=== PATIENT | female | born 1960 | race Caucasian/White ===

== ENCOUNTER 2021-08-08 19:03 | Emergency (ER) | payer BC, OTHER, SELFPAY ==
[2021-08-08 19:04] VITALS: BP 141/75; PULSE 87; RESP 17; TEMP 37.1; O2SAT 99; BMI 36.0
[2021-08-08 19:19] VITALS: BP 141/75; PULSE 90; RESP 16; TEMP 36.9; O2SAT 97; BMI 36.0
--- NOTE | 2021-08-08 19:34 | PC.NURSE ---
PATIENT SENT ER PER Kavin WILLIS APRN D/T LACERATION TO FINGER INVOLVING NAILBED
--- NOTE | 2021-08-08 19:34 | HMH.EDUTC ---
[facility] [place] <Wilman Kuhn - Last Filed: 08/08/21 20:38> Condition on Discharge: Good <Jailyn Patel - Last Filed: 08/08/21 20:52> Clinical Impression: Laceration Disposition: Home, Self-Care Instructions: DI for Laceration Repair Additional Instructions: sutures out 10 days and recheck if any problems Prescriptions: cephALEXin [cephALEXin 500mg capsule*] 500 mg PO TID #30 cap Transmission Status: Received by [facility]/pharmacy #[id number] Referrals: Wilman Ceja [Primary Care Provider] - Medical Decision Making - Kiran Inquiry Pt receiving controlled substance: No Kiran was queried for this patient: No <Jailyn Patel - Last Filed: 08/08/21 20:52> Vital Signs: 08/08/21 19:04 08/08/21 19:19 Temperature 98.7 F 98.4 F Temperature Source Oral Oral Pulse Rate [Right] 87 90 Respiratory Rate 17 16 Blood Pressure [Right Arm] 141/75 H 141/75 H Blood Pressure Mean [Right Arm] 97 97 Blood Pressure Source [Right Arm] Automatic Cuff 02 Sat by Pulse Oximetry 99 97 Oxygen Delivery Method Room Air Room Air Orders (Tests/Meds): ED MEDICATIONS Discontinued Medications Generic Name Dose Route Start Last Admin Trade Name Freq PRN Reason Stop Dose Admin Cephalexin HCl 500 mg 08/08/21 20:41 08/08/21 20:45 Cephalexin 500mg Capsule PO 08/08/21 20:42 500 mg ONCE ONE Administration Medical Decision Narrative: due to complex laceration to tip of left index finger through finger nail that appears to be involving nailbed called ED spoke with Sami and patient was transferred back to the ED for further treatment (Jailyn Patel) [facility] [place] - General Source of Information: Patient, Medical Record Limitations: No Limitations <Wilman Kuhn - Last Filed: 08/08/21 20:38> - General Mode of Arrival: Ambulatory Description of Symptoms (Recalled from Triage Doc. by RN): pt states was using sewing machine and finger slipped. 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 Time Seen by Provider: 08/08/21 19:34 - Related Data Home Medications Medication Instructions Recorded Confirmed Lisinopril/Hydrochlorothiazide 1 each PO DAILY 08/08/21 08/08/21 [Zestoretic 10/12.5mg tablet] Meloxicam [Mobic 15 mg tab] 15 mg PO DAILY 08/08/21 08/08/21 metHOTREXate sodium [metHOTREXate 2.5 mg PO DAILY 08/08/21 08/08/21 2.5mg Tablet] Previous Rx's Medication Instructions Recorded cephALEXin [cephALEXin 500mg 500 mg PO TID #30 cap 08/08/21 capsule*] Allergies Allergy/AdvReac Type Severity Reaction Status Date / Time No Known Allergies Allergy Verified 08/08/21 19:36 [facility] History I have reviewed the patient's past medical history: Yes <Jailyn Patel E - Last Filed: 08/08/21 20:52> - Hepatitis A Screen Attestation statement:: This patient has been screened for Hepatitis A risk factors. ROS Obtained: Yes All systems reviewed & no additional complaints, Yes Systems reviewed as appropriate & no additional complaints - Constitutional Constitutional: Reports system reviewed and no additional complaints, except as docu - ENT Ears, Nose, Mouth, and Throat: Reports system reviewed and no additional complaints, except as docu - Cardiovascular Cardiovascular: Reports system reviewed and no additional complaints, except as docu - Respiratory Respiratory: Reports system reviewed and no additional complaints, except as docu - Musculoskeletal Musculoskeletal: Reports system reviewed and no additional complaints, except as docu - Integumentary/Breasts Skin/Breast: Reports system reviewed and no additional complaints, except as docu
--- NOTE | 2021-08-08 19:37 | XR_ITS ---
PROCEDURE INFORMATION: Exam: XR Left Hand Exam date and time: 08/08/2021 7:37 PM Age: 60 years old Clinical indication: Injury or trauma; Other: Sewing injury; Bleeding/hemorrhage and blunt trauma (contusions or hematomas); Left index finger; Patient HX: Left distal index finger. Looks like finger nail torn lose. ; Additional info: Sewing accident TECHNIQUE: Imaging protocol: XR Left hand. Views: 3 or more views. COMPARISON: No relevant prior studies available. FINDINGS: Bones/joints: No acute fracture or dislocation. Bones appear mildly demineralized. Mild chronic arthritic changes with narrowing and periarticular spurring of DIP joints, greatest in the 2nd and 3rd digits.There are no lytic skeletal lesions seen. Soft tissues: Soft tissue injury of the index finger with laceration; no radiopaque foreign bodies are seen within the soft tissues. Minimal soft tissue emphysema. IMPRESSION: 1. No acute fracture or dislocation. 2. Soft tissue laceration and edema of the distal index finger; no radiopaque foreign bodies or metal fragments within the soft tissues. 3. Mild chronic arthritic changes in the hand, likely degenerative osteoarthritis.
[2021-08-08 20:52] VITALS: BP 127/75; PULSE 80; RESP 16; TEMP 36.9; O2SAT 98
== END 2021-08-08 20:53 | disposition home or self-care (01) ==
LOC: UTC 19:24 → ER 19:32
PROVIDERS: Emergency Provider Emergency Medicine; PCP Internal Medicine Cardiovascular Disease
DX: S61.311A Laceration without foreign body of left index finger with damage to nail, initial encounter (principal); W31.89XA Contact with other specified machinery, initial encounter; Y92.019 Unspecified place in single-family (private) house as the place of occurrence of the external cause
CPT/HCPCS: 12001; 73130; 99282

== ENCOUNTER 2024-11-10 10:26 | Emergency (ER) | payer BC, OTHER, SELFPAY ==
[2024-11-10] VITALS (10 sets, daily range): BP systolic 117–137; BP diastolic 63–73; PULSE 59–72; RESP 13–16; TEMP 36.7; O2SAT 94–100; BMI 30.7
--- NOTE | 2024-11-10 10:29 | ECG_ITS ---
APPROVED REPORT Exam: Resting ECG HR:66 bpm ECG Measurements Heart Rate 66 AXES VT 163 P 52 QRSd 94 QRS 27 QT 381 T 52 QTc 395 Conclusion SINUS RHYTHM INDETERMINATE AXIS NORMAL ECG UNCONFIRMED REPORT Electronically signed by : Wilton Sales, 11/10/2024 15:09:52
--- NOTE | 2024-11-10 10:41 | XR_ITS ---
FINAL REPORT CLINICAL HISTORY: SOA pt states chest pressure FINDINGS: A portable view of the chest is obtained. Cardiac and mediastinal silhouettes are normal. The lungs are clear. There is no pleural effusion or pneumothorax. IMPRESSION: No acute process on this portable exam. Reviewed, Interpreted and Dictated by Lia Arriola MD Transcribed by Jo Rodrigez Authenticated and [facility]
[2024-11-10 10:47] LABS: Basophils # 0.1 K/mm3 (0-0.2); Basophils % 1.2 % (0.1-2.0); Eosinophils # 0.3 Kmm3 (0.0-0.4); Eosinophils % 4.4 % (0.1-12.0); Hemoglobin 14.5 g/dL (12.2-16.2); Lymphocytes % 30.3 % (10-50); Mean Corpuscular HGB Conc 33.7 g/dL (31.8-35.4); Mean Corpuscular Hemoglobin 32.5 pg (27.0-31.2); Mean Corpuscular Volume 96.4 fl (81-99); Mean Platelet Volume 11.3 fl (7.4-10.4); Monocytes # 0.6 K/mm3 (0.1-1.0); Neutrophils # 3.6 K/mm3 (1.8-7.8); Neutrophils % 54.8 % (37.0-80.0); Nucleated Red Blood Cells # 0 10^3/uL; Nucleated Red Blood Cells % 0 %; Platelet Count 208 K/mm3 (142-424); Red Blood Count 4.46 M/mm3 (4.20-5.40); Red Cell Distribution Width 13.5 % (11.5-17.5); Red Cell Distribution Width-SD 47.6 fL; White Blood Count 6.6 K/mm3 (4.8-10.8)
--- NOTE | 2024-11-10 10:48 | ED_ITS ---
<Statement entered by Florinda Sales MD - 11/10/24 15:07> I was consulted by the ZOLTAN, and we discussed the complexity of the problems being addressed. I approved the treatment and management plan for this patient's care in the emergency department, thus performing a substantive portion of the medical decision making. Florinda Sales MD, ITZ, FACEP Discharge Plan Disposition Patient Disposition: Home, Self-Care Condition: Good Chief Complaint: Chest Pain Prescriptions Prescriptions: No Action meloxicam 15 MG tablet 15 mg PO DAILY methotrexate sodium 2.5 MG tablet 2.5 mg PO DAILY lisinopril-hydrochlorothiazide 1 EACH tablet 1 each PO DAILY folic acid 1 mg tablet 1 mg PO DAILY Patient Comments: TAKE 1 TABLET BY MOUTH EVERY DAY Enbrel SureClick 50 mg/mL (1 mL) pen injector 50 mg SQ DIRECTED cetirizine 10 mg tablet 10 mg PO DAILY Patient Comments: TAKE 1 TABLET BY MOUTH EVERY DAY oxybutynin chloride 10 mg tablet extended release 24hr 10 mg PO DAILY Patient Comments: TAKE 1 TABLET BY MOUTH EVERY DAY Wegovy 2.4 mg/0.75 mL pen injector 2.4 mg SQ WEEKLY Patient Comments: SUBCUTANEOUS (INJECT UNDER THE SKIN) 0.75 ML ONCE A WEEK. Referrals Follow up/Referrals: Provider,Referral, [Referring] - See instructions Activity Restrictions/Add. Instructions Additional Instructions/Restrictions: Return to the emergency department any worsening signs or symptoms, any worsening shortness of breath or chest pain, please follow-up with your family physician in the upcoming days. Please continue take all medication as prescribed. Clinical Impressions Clinical Impression: Chest pain Instructions Patient Instructions: DI for Atypical Chest Pain, DI for Chest Pain Print Language Print Language: Amharic Discharge ED Provider: Florinda Sales [facility] General Chief Complaint: Chest Pain Stated Complaint: chest pain Time Seen by Provider: 11/10/24 10:40 Mode of Arrival: Family Vehicle Source of Information: Patient Limitations: No Limitations Description of Symptoms (Recalled from ER Triage Doc. by RN): Patient states around 0900 at the dentist that she had a tightness, pressure, and fullness in her chest that went away after sitting in her vehicle for a few minutes. Pt states minimal pain with the pressure 3/10, but no pain now or any SOB or loss of conciousness during tightness. Pt states another episode happened again around 1000 and nothing makes it better or worse. Patient states no current pain History of Present Illness HPI narrative: 64-year-old female presents emergency department accompanied by her for some chest fullness , pressure and tightness substernally nonradiating, that started approximately 9 AM today while she was at the dentist , describes it as a 3 out of 10/5 out of 10, patient denies any current chest pain or tightness, states each episode lasted for approximately 5 minutes , each, she has never had an episode like this before, she had 2 episodes, low in the range of 9 AM to 10 AM, currently subsided, she denies any fever chills cough congestion, sore throat, shortness of breath, denies any nausea vomiting constipation abdominal pain, no diarrhea, no urinary type symptomatology. Patient has other past medical history consistent with osteoarthritis, and she is on GLP-1 agonist for weight loss, and oxybutynin for data deficient history of overactive bladder. Initial triage vitals are unremarkable, patient is a non-smoker, denies any alcohol or drug use. Related Data Home Medications ?Medication ?Instructions ?Recorded ?Confirmed lisinopril 10 1 each PO DAILY htn 08/08/21 11/10/24 mg-hydrochlorothiazide 12.5 mg tablet meloxicam 15 mg tablet 15 mg PO DAILY Pain 08/08/21 11/10/24 methotrexate sodium 2.5 mg tablet 2.5 mg PO DAILY 08/08/21 11/10/24 cetirizine 10 mg tablet 10 mg PO DAILY 11/10/24 11/10/24 etanercept 50 mg/mL (1 mL) 50 mg SQ DIRECTED 11/10/24 11/10/24 subcutaneous pen injector (Enbrel SureClick) folic acid 1 mg tablet 1 mg PO DAILY 11/10/24 11/10/24 oxybutynin chloride 10 mg 10 mg PO DAILY 11/10/24 11/10/24 tablet,extended release 24 hr semaglutide (weight loss) 2.4 2.4 mg SQ WEEKLY 11/10/24 11/10/24 mg/0.75 mL subcutaneous pen injector (Wegovy) Allergies Allergy/AdvReac Type Severity Reaction Status Date / Time No Known Allergies Allergy Verified 08/08/21 19:36 [facility] Disclaimer: The information contained in this section may have been updated after the patient was seen, as this information can be updated by other users. Social History Smoking Status: Smoker, status unknown alcohol intake: never current occupational status: other Travel in the last 8 weeks: None Other Medical History Have you received the Flu Vaccine for this season: Yes Have you received the Pneumonia Vaccine: Yes ROS Obtained: Yes All systems reviewed & no additional complaints except as documented Physical Exam General General appearance: alert and in no apparent distress Head Head exam: atraumatic and normocephalic Eye Eye exam: Present PERRL and EOMI ENT ENT exam: Present mucous membranes moist Neck Neck exam: Present normal inspection Chest Chest inspection: Present normal inspection and symmetric chest wall rise Respiratory Respiratory exam: Present normal lung sounds bilaterally; Absent respiratory distress Cardiovascular Cardiovascular exam: Present regular rate and normal rhythm Abdominal Exam Abdominal exam: Present soft; Absent tenderness Extremities Exam Extremities exam: Present normal inspection Neurological Exam Neurological exam: Present alert and oriented X3 Psychiatric Psychiatric exam: Present normal affect Skin Skin exam: Present warm and dry HEART Score HEART Score HEART Score assessment performed?: Yes HEART Score: 1 Critical Care Critical Care Time Critical Care Time: No Medical Decision Making Medical Records Medical records reviewed: Yes I reviewed the patient's medical records. Kiran Inquiry Pt receiving controlled substance: No Kiran was queried for this patient: No Vital Signs Vital Signs: 11/10/24 10:39 11/10/24 10:51 11/10/24 11:00 Temperature 98.1 F Temperature Source Oral Pulse Rate 72 66 Pulse Rate [Right] 72 Respiratory Rate 16 16 Blood Pressure 120/73 Blood Pressure [Right Arm] 133/70 Blood Pressure Mean [Right Arm] 91 Blood Pressure Source [Right Arm] Automatic Cuff Blood Pressure Position [Right Arm] Supine 02 Sat by Pulse Oximetry 98 98 Oxygen Delivery Method Room Air Room Air 11/10/24 11:30 11/10/24 12:00 11/10/24 12:55 Temperature Temperature Source Pulse Rate 63 60 66 Pulse Rate [Right] Respiratory Rate 14 14 15 Blood Pressure 131/72 119/72 124/64 Blood Pressure [Right Arm] Blood Pressure Mean [Right Arm] Blood Pressure Source [Right Arm] Blood Pressure Position [Right Arm] 02 Sat by Pulse Oximetry 94 L 95 97 Oxygen Delivery Method Room Air Room Air Room Air 11/10/24 13:00 11/10/24 13:31 11/10/24 14:00 Temperature Temperature Source Pulse Rate 59 L 69 62 Pulse Rate [Right] Respiratory Rate 14 14 13 Blood Pressure 119/65 117/63 137/68 Blood Pressure [Right Arm] Blood Pressure Mean [Right Arm] Blood Pressure Source [Right Arm] Blood Pressure Position [Right Arm] 02 Sat by Pulse Oximetry 100 97 98 Oxygen Delivery Method Room Air Room Air Room Air Lab Data Lab results reviewed: Yes I reviewed the patient's lab results. Labs: Lab Results 11/10/24 10:34: WBC 6.6, RBC 4.46, Hgb 14.5, Hct 43.0, MCV 96.4, MCH 32.5 H, MCHC 33.7, RDW 13.5, Plt Count 208, MPV 11.3 H, Neut % (Auto) 54.8, Lymph % (Auto) 30.3, [place] % (Auto) 9.0, Eos % (Auto) 4.4, Baso % (Auto) 1.2, Neut # (Auto) 3.6, Lymph # (Auto) 2.0, [place] # (Auto) 0.6, Eos # (Auto) 0.3, Baso # (Auto) 0.1, D-Dimer 0.88 H, Sodium 139, Potassium 4.0, Chloride 103, Carbon Dioxide 28, Anion Gap 12.0, BUN 18 H, Creatinine 0.80, Estimated Creat Clear 77, Estimated GFR 72, Est GFR ( Amer) 87, Glucose 110 H, Calcium 9.5, Magnesium 2.2, Total Bilirubin 0.7, AST 41 H, ALT 29, Alkaline Phosphatase 77, Troponin I < 0.01, NT-Pro-B Natriuret Pep 31.7, Total Protein 6.8, Albumin 4.0, Globulin 2.8, Albumin/Globulin Ratio 1.4, Lipase 101, HCV Ab DIMAS w/Rflx PCR Qn Negative, HIV Ag/Ab Combo Qual Negative 11/10/24 14:06: Troponin I < 0.01 11/10/24 10:34 11/10/24 10:34 Response Orders (Tests/Meds): ED MEDICATIONS Discontinued Medications Generic Name Dose Route Start Last Admin Trade Name Freq PRN Reason Stop Dose Admin Aspirin 325 mg 11/10/24 10:47 11/10/24 10:58 Aspirin 325mg Tablet PO 11/10/24 10:48 325 mg ONCE ONE Administration Morphine Sulfate 2 mg 11/10/24 11:28 11/10/24 11:34 Morphine 2mg/Ml Syringe IV 11/10/24 11:29 2 mg ONCE ONE Administration Ondansetron HCl 4 mg 11/10/24 11:28 11/10/24 11:34 Ondansetron 4mg/2ml Vial IV 11/10/24 11:29 4 mg ONCE ONE Administration ORDERS Category Date Time Status XR chest portable Stat Exams 11/10/24 10:41 Completed Complete Blood Count Auto Diff Stat Lab 11/10/24 10:34 Completed Comprehensive Metabolic Panel Stat Lab 11/10/24 10:34 Completed D-Dimer Stat Lab 11/10/24 10:34 Completed HIV Combo Stat Lab 11/10/24 10:34 Completed Hepatitis C Ab Qual. W/ RFX Stat Lab 11/10/24 10:34 Completed Lipase Stat Lab 11/10/24 10:34 Completed Magnesium Stat Lab 11/10/24 10:34 Completed NT Pro Brain Natriuretic Pep. Stat Lab 11/10/24 10:34 Completed Troponin I Q3H Lab 11/10/24 14:06 Completed Troponin I Q3H Lab 11/10/24 16:45 Ordered Troponin I Stat Lab 11/10/24 10:34 Completed MDM Narrative Medical Decision Narrative: 64-year-old female presents the emergency department with chest pain, differential diagnose include but not limited to, PE, ACS, cardiac arrhythmia, electrolyte disturbance, gastritis, GERD, anxiety type reaction, panic attack, costochondritis, pneumothorax, pneumonia among others. I discussed patient case with attending physician Obtain respiratory studies, D-dimer, lipase level, magnesium level proBNP troponin EKG, will give patient 325 mg p.o. aspirin for pain and will obtain x- ray of the chest. CBC unremarkable D-dimer is elevated at 0.88, utilizing years criteria PE is excluded, as well as utilizing age-adjusted D-dimer, VTE unlikely. AST is minimally elevated at 41, lipase within normal limits. Initial troponin and proBNP within normal limits. Patient initial cardiac workup is negative, patient will be placed in ED observation status for repeat 3-hour troponin to rule out any other cardiac etiology of the patient's symptomatology. Of note, patient did have another episode of chest pain upon my reexamination at approximately 11:25 AM, patient states this episode lasted for around 2 to 3 minutes, similar, but is a little bit lower , that her initial chest pain will give 2 mg IV morphine, 4 mg reason for pain and nausea. Continue ED observation status with repeat troponin. I reviewed and independently interpreted the patient's chest x-ray along with the patient's chest x-ray along with the corresponding radiologic report, no acute process on this portable exam. Repeat troponin is unremarkable/within normal limits. Reexamination of the patient at approximately 2:45 PM, patient's chest pain is improved, she has only had several episodes that are waxing waning, somewhat positional in nature, most likely musculoskeletal chest pain versus GI chest pain, patient was given very strict ED return precautions. Heart score is 1 due to her age, low risk for any adverse cardiac event. Patient voiced understanding agreement current treatment plan/discharge plan. Patient will follow-up with PCP as directed.
[2024-11-10 10:54] LABS: Alanine Aminotransferase 29 U/L (12-78); Albumin/Globulin Ratio 1.4 (1.1-1.8); Alkaline Phosphatase 77 U/L (38-126); Aspartate Amino Transferase 41 U/L (14-36); Bilirubin,Total 0.7 mg/dl (0.2-1.3); Blood Urea Nitrogen 18 mg/dl (7-17); Calcium 9.5 mg/dl (8.4-10.2); Carbon Dioxide 28 mmol/L (22.0-30.0); Chloride 103 mmol/L (98-107); Creatinine Clearance Estimated 77 mL/min (50-200); Estimated Glomerular Filt Rate 72 ml/min (>60); GFR (African American) 87 ML/MIN (>60); Globulin 2.8 g/dL (1.3-3.2); Glucose 110 mg/dl (74-100); Lipase 101 U/L (23-300); Magnesium 2.2 mg/dl (1.6-2.3); Sodium 139 mmol/L (136-145); Total Protein,Serum 6.8 g/dl (6.3-8.2)
[2024-11-10] MEDS: ASPIRIN 325MG TABLET 325 MG PO (10:58)
[2024-11-10 10:59] LABS: D-Dimer 0.88 ug/mL (0.0-0.5)
[2024-11-10 11:07] LABS: NT Pro Brain Natriuretic Pep. 31.7 pg/mL (0-125)
[2024-11-10 11:17] LABS: Troponin I < 0.01 ng/ml (0.00-0.034)
[2024-11-10] MEDS: ONDANSETRON 4MG/2ML VIAL 4 MG IV (11:34)
[2024-11-10] MEDS: MORPHINE 2MG/ML SYRINGE 2 MG IV (11:34)
[2024-11-10 11:50] LABS: HIV Combo NEGATIVE (Negative)
[2024-11-10 11:58] LABS: Hepatitis C Ab Qual. W/ RFX NEGATIVE (Negative)
--- NOTE | 2024-11-10 14:14 | PC.NURSE ---
repeat trop sent to lab at this time
[2024-11-10 14:43] LABS: Troponin I < 0.01 ng/ml (0.00-0.034)
== END 2024-11-10 15:03 | disposition home or self-care (01) ==
PROVIDERS: Physician Assistant; Emergency Provider Student in an Organized Health Care Education/Training Program; PCP Internal Medicine Cardiovascular Disease
DX: R07.89 Other chest pain (principal); Z11.59 Encounter for screening for other viral diseases; Z11.4 Encounter for screening for human immunodeficiency virus [HIV]
CPT/HCPCS: 71045; 80053; 83690; 83735; 83880; 84484; 85025; 85378; 86803; 87389; 93005; 96374; 96375; 99285; J2270; J2405